=== PATIENT | male | born 1975 | race Caucasian/White ===

== ENCOUNTER 2023-01-24 19:57 | Inpatient (IN) | payer BC ==
[2023-01-24] MEDS ORDERED: Lactated Ringers 500 ML IV ONE (20:20)
[2023-01-24] MEDS ORDERED: Ondansetron 4 MG/2 ML SDV IVPUSH ONE (20:21)
[2023-01-24] MEDS ORDERED: Lactated Ringers 1,000 ML IV SCH (20:30)
[2023-01-24] MEDS ORDERED: HYDROmorphone 0.5 MG/0.5 ML Syringe IVPUSH ONE (20:46)
[2023-01-24] MEDS ORDERED: Iopamidol 612 MG/ML 100 ML Bottle IVPUSH ONE (22:45)
[2023-01-25] MEDS ORDERED: LORazepam 2 MG/ML SDV IVPUSH PRN (00:38)
[2023-01-25] MEDS ORDERED: Ondansetron 4 MG/2 ML SDV IVPUSH PRN (00:39)
[2023-01-25] MEDS ORDERED: Pantoprazole 40 MG Vial IVPUSH ONE (00:50)
[2023-01-25] MEDS: HYDROmorphone 0.5 MG/0.5 ML Syringe IVPUSH PRN ×5 (02:15→19:34)
[2023-01-25] MEDS: Dextrose 5%-0.9% NaCl 1,000 ML IV SCH ×3 (03:19→18:03)
[2023-01-25] MEDS: Pantoprazole 40 MG Vial IVPUSH ONE ×2 (03:46→05:06)
[2023-01-25] MEDS: Famotidine 20 MG/2 ML SDV IVPUSH SCH (09:32)
[2023-01-25] MEDS ORDERED: Nicotine Polacrilex 2 MG Gum CHEW PRN (19:49)
[2023-01-25] MEDS: Nicotine 14 MG/24 Hr Patch TRDERM SCH (20:33)
[2023-01-25] MEDS: Pantoprazole 40 MG Vial IVPUSH SCH (20:34)
[2023-01-26] MEDS: Dextrose 5%-0.9% NaCl 1,000 ML IV SCH ×3 (00:07→14:18)
[2023-01-26] MEDS: HYDROmorphone 0.5 MG/0.5 ML Syringe IVPUSH PRN ×4 (01:21→18:35)
[2023-01-26] MEDS: Famotidine 20 MG/2 ML SDV IVPUSH SCH (09:00)
[2023-01-26] MEDS: Nicotine 14 MG/24 Hr Patch TRDERM SCH (09:00)
[2023-01-26] MEDS ORDERED: Benzocaine/Cetylpyridinium/Menthol Lozenge MUCMEM PRN (13:59)
[2023-01-26] MEDS: Pantoprazole 40 MG Vial IVPUSH SCH (20:07)
[2023-01-27] MEDS: Famotidine 20 MG/2 ML SDV IVPUSH SCH (09:34)
[2023-01-27] MEDS: Nicotine 14 MG/24 Hr Patch TRDERM SCH (09:34)
== END 2023-01-27 10:58 | disposition home or self-care (01) | DRG 247 ==
LOC: JD.ED 19:57 → JD.MS 01-25 00:36
PROVIDERS: ADMIT Specialist; ATTEND Specialist
PROC: 0DH68UZ Insertion of Feeding Device into Stomach, Via Natural or Artificial Opening Endoscopic (ICD-10-PCS; principal; 2023-01-25)
DX: K56.600 Partial intestinal obstruction, unspecified as to cause (principal); K52.9 Noninfective gastroenteritis and colitis, unspecified; E11.9 Type 2 diabetes mellitus without complications; F17.210 Nicotine dependence, cigarettes, uncomplicated; K59.00 Constipation, unspecified; E66.9 Obesity, unspecified; E86.0 Dehydration; Z68.41 Body mass index [BMI] 40.0-44.9, adult; Z90.49 Acquired absence of other specified parts of digestive tract; Z90.89 Acquired absence of other organs
CPT/HCPCS: 36415; 74018; 74018-26; 74019; 74019-26; 74177; 74177-26; 74250; 74250-26; 80048; 80053; 81003; 83605; 84484; 85025; 96361; 96374; 96375; 99284; 99285-25; A9270-GY; C9113; J1170; J2060; J2405; J3490; J7042; J7120; Q9967